=== PATIENT | female | born 1995 | race Two or more races ===

== ENCOUNTER 2017-05-30 22:57 | Emergency (ER) | payer OTHER ==
[~2017-05-30] VITALS: Ht 152.4 cm; Wt 72.8 kg
[2017-05-30] MEDS ORDERED: ACETAMINOPHEN 500 MG TABLET ONE (23:28)
[2017-05-30] MEDS ORDERED: IBUPROFEN 200 MG TABLET ONE (23:36)
[2017-05-30] MEDS ORDERED: ONDANSETRON 2MG/ML, 2ML ONE (23:36)
[2017-05-30 23:44] LABS: RAPID INFLUENZA A Negative (Negative); RAPID INFLUENZA B Negative (Negative)
[2017-05-31] MEDS ORDERED: ONDANSETRON 2MG/ML, 2ML IVPush ONE
[2017-05-31] MEDS ORDERED: IBUPROFEN 200 MG TABLET PO ONE
[2017-05-31] MEDS ORDERED: ACETAMINOPHEN 500 MG TABLET PO ONE
[2017-05-31 00:14] LABS: ALANINE AMINOTRANSFERASE 71 U/L (12-78); ALBUMIN 3.4 g/dL (3.4-5.0); ANION GAP 7 mmol/L (5-15); CALCIUM 7.1 mg/dL (8.5-10.1); CHLORIDE 103 mmol/L (98-107)
[2017-05-31 00:19] LABS: ALKALINE PHOSPHATASE 82 U/L (45-117); BILIRUBIN,TOTAL 2.3 mg/dL (0.2-1.0); TOTAL PROTEIN 7.3 g/dL (6.4-8.2); TROPONIN I < 0.015 ng/mL (0.000-0.045)
[2017-05-31] MEDS ORDERED: SODIUM CHLORIDE 0.9% 1,000ML IVBOLUS ONE ×2 (00:30)
[2017-05-31 00:35] LABS: MEAN CORPUSCULAR HEMOGLOBIN 19.7 pg (27.0-34.8); MEAN CORPUSCULAR HGB CONC 31.5 g/dL (32.4-35.8); MEAN CORPUSCULAR VOLUME 62.4 fL (80-100); RED CELL DISTRIBUTION WIDTH 26.4 % (9.6-15.2)
[2017-05-31 00:36] LABS: MD YES; MEAN PLATELET VOLUME 10.8 fL (7.4-10.4); PLATELET COUNT 172 x10^3/uL (130-400)
[2017-05-31 00:40] LABS: BAND#(MANUAL) 0.22 x10^3/uL; BANDS%(MANUAL) 2 % (0-7); LYMPH#(MANUAL) 2.18 x10^3/uL (1-6.1); LYMPHS% (MANUAL) 20 % (22-44); MONOS#(MANUAL) 1.09 x10^3/uL (0.3-2.7); MONOS% (MANUAL) 10 % (2-9); SEG#(MANUAL) 7.41 x10^3/uL (1.8-8); SEGS% (MANUAL) 68 % (42-75)
[2017-05-31 00:41] LABS: ANISOCYTOSIS 2+; HYPOCHROMIA 1+; TEAR DROPS 1+
[2017-05-31 00:42] LABS: OVALOCYTES 1+
[2017-05-31 00:42] LABS: CULTURE INDICATED? YES; MICROSCOPIC INDICATED
[2017-05-31 00:43] LABS: MICROCYTOSIS 1+; POLYCHROMASIA 1+
[2017-05-31 00:48] LABS: SCHISTOCYTES 1+
[2017-05-31 00:49] LABS: <PLATELET ESTIMATE> ADEQUATE; LARGE PLATELETS 1+; TARGET CELLS 1+
[2017-05-31 02:14] VITALS: BP 130/55
== END 2017-05-31 02:16 | disposition home or self-care (01) ==
LOC: ED 23:59
DX: J02.0 Streptococcal pharyngitis (principal); B34.9 Viral infection, unspecified
CPT/HCPCS: 36415; 71045; 80053; 81001; 83605; 83690; 84484; 84703; 85025; 87086; 87400; 93005; 96361; 96374; 99285; J2405; J7030